=== PATIENT | female | born 1955 | race Caucasian/White ===

== ENCOUNTER 2020-06-18 08:18 | Emergency (ER) | payer MEDICARE, SELFPAY ==
--- NOTE | ~2020-06-18 | XR_ITS ---
EXAMINATION: XR chest 2V EXAM DATE: 06/18/2020 08:58 INDICATION: Mid chest pain and high blood pressure. TECHNIQUE: Frontal and lateral projections of the chest obtained and reviewed. Comparison is made to prior examination from 12/22/2018. FINDINGS: There are cholecystectomy clips. The lungs are clear. There are no pleural effusions. Th e cardiomediastinal silhouette is within normal limits. There is no pneumothorax suspected. The bon es and soft tissues are unremarkable. There is no significant interval change. IMPRESSION: No acute cardiopulmonary findings. Reviewed, dictated and finalized at location A.
[2020-06-18 08:21] VITALS: BP 157/88; PULSE 76; RESP 21; TEMP 36.6; O2SAT 98
--- NOTE | 2020-06-18 08:30 | ECG_ITS ---
Measurements Intervals Lindsay Rate: 73 P: 0 ND: 165 QRS: -2 QRSD: 83 T: 35 QT: 355 QTc: 392 Interpretive Statements SINUS RHYTHM DELAYED PRECORDIAL R/S TRANSITION BORDERLINE ECG Electronically Signed On 06-18-2020 11:24:39 CDT by Pradeep Calderón D.O.
--- NOTE | 2020-06-18 08:31 | ED.CHESTPAIN ---
HPI - Chest Pain General Chief Complaint: Recheck/Abnormal Lab/Rx Stated Complaint: High Blood Pressure Time Seen by Provider: 06/18/20 08:21 History of Present Illness HPI narrative: She reports intermittent blood pressure elevation and chest pressure for the past few days. No pain. There does not seem to be anything in particular that brings the pressure on. It is not exertional. She has noted that when she experiences this her BP tends to be higher than usual. No SOB. Mild stomach upset. She had similar symptoms in the past diagnosed as anxiety. Related Data Home Medications Medication Instructions Recorded Confirmed alprazolam 0.25 mg tablet 0.25 mg PO TID PRN 12/03/19 04/12/20 doxycycline monohydrate 40 mg 40 mg PO DAILY 12/03/19 04/12/20 capsule,immediate - delay release gabapentin 100 mg capsule 300 mg PO QID cap 12/03/19 04/12/20 mzxntuob-mprpbbg-ehnc-lutein mcg PO DAILY tablet 03/31/20 04/12/20 omega-3 fatty acids 1,000 mg 1,000 mg PO DAILY 03/31/20 04/12/20 capsule Allergies Allergy/AdvReac Type Severity Reaction Status Date / Time amoxicillin Allergy Unknown Vomiting Verified 06/18/20 09:30 clavulanic acid AdvReac Severe Nausea and Verified 06/18/20 09:30 [From Augmentin] Vomiting Review of Systems Review of Systems: All systems reviewed & are unremarkable except as noted in HPI and below Constitutional: Constitutional: Denies chills, Denies fever(s) and Denies weakness Cardiovascular: Cardiovascular: Denies rapid heart rate Respiratory: Respiratory: Denies cough and Denies dyspnea Gastrointestinal: Gastrointestinal: Denies abdominal pain, Reports nausea and Denies vomiting Musculoskeletal: Musculoskeletal: Denies back pain Neurologic: Denies numbness and Denies weakness [facility] Past Medical History Medical History Hypertension Hypothyroidism Polymyopathy Surgical History Surgical History History of appendectomy History of cholecystectomy History of tonsillectomy Family History Family History Mother Depression Sibling Hypertension Father Family history of arthritis Social History Social History Smoking status: Never smoker Second hand tobacco smoke exposure: No Alcohol intake: never Substance use: never Substance use type: does not use Gender identity (if verbalized by the patient): Female Exam Const: General: healthy appearing, no acute distress and alert Orientation/consciousness: patient oriented x3 HENMT: Head: normal to inspection Neck: Neck: normal visual inspection and no lymphadenopathy Chest: Chest palpation & inspection: no tenderness Resp: Effort & Inspection: normal respiratory effort Auscultation: clear to auscultation bilaterally, no rales, no rhonchi and no wheezes Cardio: Jugular venous distension: no JVD Rate: regular rate Rhythm: regular rhythm Heart sounds: no murmurs GI: Inspection: non-distended GI Palp: Yes Soft to palpation and No Tenderness to palpation present (GI) Skin: General skin exam: normal color Neuro: General: patient oriented x3 and moves all extremities Speech: normal speech Extrem: General: no edema Psych: Appearance: well kempt Affect: normal affect Course Vital Signs Vital signs: Vital Signs Temperature 36.6 C 06/18/20 08:21 Pulse Rate 76 06/18/20 08:21 Respiratory Rate 21 H 06/18/20 08:21 Blood Pressure 157/88 H 06/18/20 08:21 Pulse Oximetry 98 06/18/20 08:21 Temperature 36.6 C 06/18/20 08:21 Pulse Rate 77 06/18/20 10:10 Respiratory Rate 23 H 06/18/20 10:10 Blood Pressure 149/78 H 06/18/20 10:10 Pulse Oximetry 96 06/18/20 10:10 MDM - Chest Pain MDM Narrative Medical decision making narrative: Symptoms are atypical. Most likely
[2020-06-18 08:40] LABS: Basophils Absolute Auto 0.1 K/mm3 (0.0-0.1); Eosinophils Absolute Auto 0.2 K/mm3 (0-0.3); Eosinophils Percent Auto 2.8 % (0-4.4); Hematocrit 44.3 % (37.0-47.0); Immature Granulocyte Absolute 0.06 K/mm3 (0.00-0.031); Immature Granulocyte Percent A 0.7 % (0-0.5); Lymphocytes Absolute Auto 2.31 K/mm3 (0.9-3.2); Lymphocytes Percent Auto 27.8 % (18.3-44.2); Mean Corpuscular HGB Conc 33.9 g/dl (32-36); Mean Corpuscular Hemoglobin 30.3 pg (26-34); Mean Corpuscular Volume 89.5 fl (80-100); Mean Platelet Volume 10.4 fl (7.4-10.4); Monocytes Absolute Auto 0.6 K/mm3 (0.1-0.6); Monocytes Percent Auto 7.1 % (2.6-8.5); Neutrophils Percent Auto 60.6 % (45.5-73.1); Platelet Count Result 296 k/mm3 (150-375); Red Blood Count 4.95 M/mm3 (4.2-5.4); Red Cell Distribution Width 14.1 % (11.5-14.5); White Blood Count 8.3 K/mm3 (4.5-10.0)
[2020-06-18 08:52] LABS: Blood Urea Nitrogen 18 mg/dL (7-17); Calcium 9.4 mg/dL (8.4-10.2); Carbon Dioxide 24 mmol/L (22-30); Chloride 106 mmol/L (98-107); Estimated Glomerular Filt Rate > 60; Glucose 122 mg/dL (65-105); Sodium 138 mmol/L (137-145)
[2020-06-18 08:53] LABS: Prothrombin Time 12.7 Seconds (11.1-14.7)
[2020-06-18 08:54] LABS: Partial Thromboplastin Time 23.8 SECONDS (22.3-36.8)
[2020-06-18 09:04] LABS: Troponin I < 0.012 ng/mL (0.000-0.034)
[2020-06-18 09:33] VITALS: BP 132/87; PULSE 68; RESP 14; O2SAT 97
[2020-06-18 10:10] VITALS: BP 149/78; PULSE 77; RESP 23; O2SAT 96
== END 2020-06-18 10:10 | disposition home or self-care (01) ==
PROVIDERS: Emergency Provider Emergency Medicine; PCP Family Medicine
DX: R07.89 Other chest pain (principal); F41.9 Anxiety disorder, unspecified; I10 Essential (primary) hypertension; E03.9 Hypothyroidism, unspecified; R94.31 Abnormal electrocardiogram [ECG] [EKG]
CPT/HCPCS: 36415; 71046; 80048; 84484; 85025; 85610; 85730; 93005; 99284

== ENCOUNTER 2020-07-14 08:45 | Outpatient (CLI) | payer MEDICARE, SELFPAY ==
--- NOTE | ~2020-07-14 | DEXA_ITS ---
Bone Density Report Name: Keysha Rodrigez Age: 65 Sex: Female Ethnicity: White Date of : 1955 Indication: postmenopausal; height loss; Referring Provider: Philipp Mckeon Study: Bone densitometry was performed. Exam Date: July 14, 2020 Accession number: [id number] Bone Density: Region BMD T-score Z-score Classification AP Spine (L1-L4) 0.871 -1.6 0.2 Osteopenia Femoral Neck (Left) 0.610 -2.2 -0.6 Osteopenia Total Hip (Left) 0.800 -1.2 0.1 Osteopenia Total Hip Bilateral Avg 0.816 -1.0 0.2 Osteopenia Femoral Neck (Right) 0.587 -2.4 -0.8 Osteopenia Total Hip (Right) 0.831 -0.9 0.3 Normal World Health Organization criteria for BMD impression classify patients as: Normal (T-score at or above -1.0), Osteopenia (T-score between -1.0 and -2.5), or Osteoporosis (T-score at or below -2.5). 10-year Fracture Risk(1): Major Osteoporotic Fracture 12% Hip Fracture 2.1% Reported Risk Factors: [place] (), Neck BMD=0.587, BMI=32.3 (1) FRAX(R) Version 3.08. Fracture probability calculated for an untreated patient. Fracture probability may be lower if the patient has received treatment. Clinical Information Provided by Patient: Patient maximum height was 67.5 Menopause Age: 48 Onset of menses at age 11 Number of children 3 Impression: The patient has low bone mass, based on the Right Femoral Neck T-score. The patient has an estimated ten-year risk of hip fracture of 2.1% and an estimated ten-year risk of major fracture of 12%, based on the WHO FRAX algorithm. Discussion: BONE DENSITY IS LOW AT ONE OR MORE SKELETAL SITES. This patient's lowest T-score is low at one or more skeletal sites. It meets the World Health Organization's (WHO) criteria for ?low bone mass? (T-score between -1.0 and -2.5). The patient's 10-year risk of fracture as calculated by FRAX is less than the threshold where pharmacological therapy is recommended by the National Osteoporosis Foundation (NOF). However, all treatment decisions require clinical judgment and consideration of individual patient factors, including patient preferences, comorbidities, previous drug use, risk factors not captured in the FRAX model (e.g., frailty, falls, vitamin D deficiency, increased bone turnover, interval significant decline in bone density) and possible under or overestimation of fracture risk by FRAX. The patient should follow a healthful lifestyle (good nutrition with adequate calcium and vitamin D, and appropriate weight-bearing exercise). Follow-Up: Consider repeating this study in 2 to 3 years to reassess this patient's status, or sooner if there is some new clinical indication. Reported by: [facility] on 07/14/2020 9:16:00 AM. Reviewed, dictated and finalized at location AVenancio SARAH
== END 2020-07-14 08:46 | disposition home or self-care (01) ==
LOC: ANHIMG 08:47
PROVIDERS: PCP Family Medicine; Visit Provider Family Medicine
DX: Z78.0 Asymptomatic menopausal state (principal); M85.89 Other specified disorders of bone density and structure, multiple sites
CPT/HCPCS: 77080

== ENCOUNTER → 2021-06-30 16:37 | Outpatient (CLI) | payer MEDICARE, SELFPAY ==
--- NOTE | ~2021-06-30 | MM_ITS ---
EXAMINATION: MM screening [facility] BI w hira HISTORY: Screening mammogram TECHNIQUE: Craniocaudal and mediolateral oblique 3-D tomosynthesis images were obtained and synthetic 2-D images were generated. CAD analysis was submitted and interpreted. COMPARISON: 07/21/2019, 07/10/2019 BREAST PARENCHYMAL COMPOSITION: There are scattered areas of fibroglandular density. FINDINGS: There is no evidence of suspicious mass, calcification, or architectural distortion to sugg est malignancy in either breast. There has been no suspicious interval change. IMPRESSION: 1. No mammographic evidence of malignancy. 2. Recommend routine screening mammography in one year. BI-RADS Category 1: Negative Reviewed, dictated and finalized at location A.
== END ==
PROVIDERS: PCP Family Medicine; Visit Provider Family Medicine
DX: Z12.31 Encounter for screening mammogram for malignant neoplasm of breast (principal)
CPT/HCPCS: 77063; 77067

== ENCOUNTER → 2022-07-13 01:48 | Outpatient (CLI) | payer MEDICARE, SELFPAY ==
[2022-07-13 11:38] LABS: SARS-CoV-2 RNA PCR Negative
== END ==
PROVIDERS: PCP Family Medicine; Visit Provider Family Medicine
DX: R68.89 Other general symptoms and signs (principal); Z20.822 Contact with and (suspected) exposure to COVID-19
CPT/HCPCS: C9803; U0003; U0005

== ENCOUNTER → 2022-09-03 13:28 | Outpatient (CLI) | payer MEDICARE, SELFPAY ==
--- NOTE | ~2022-09-03 | MM_ITS ---
EXAMINATION: MM screening [facility] BI w hira HISTORY: Screening TECHNIQUE: Craniocaudal and mediolateral oblique 3-D tomosynthesis images were obtained and synthetic 2-D images were generated. CAD analysis was submitted and interpreted. COMPARISON: No prior mammogram is available for comparison at this institution. BREAST PARENCHYMAL COMPOSITION: There are scattered areas of fibroglandular density. FINDINGS: There is no evidence of suspicious mass, calcification, or architectural distortion to sugg est malignancy in either breast. There has been no suspicious interval change. IMPRESSION: 1. No mammographic evidence of malignancy. 2. Recommend routine screening mammography in one year. BI-RADS Category 1: Negative Reviewed, dictated and finalized at location A.
== END ==
PROVIDERS: PCP Family Medicine; Visit Provider Family Medicine
DX: Z12.31 Encounter for screening mammogram for malignant neoplasm of breast (principal)
CPT/HCPCS: 77063; 77067

== ENCOUNTER → 2024-01-20 10:20 | Outpatient (CLI) | payer MEDICARE, SELFPAY ==
--- NOTE | ~2024-01-20 | MM_ITS ---
EXAMINATION: MM screening [facility] BI w hira HISTORY: Screening mammogram TECHNIQUE: Craniocaudal and mediolateral oblique 3-D tomosynthesis images were obtained and synthetic 2-D images were generated. CAD analysis was submitted and interpreted. COMPARISON: 09/03/2022, 06/30/2021 bilateral screening mammogram examinations BREAST PARENCHYMAL COMPOSITION: There are scattered areas of fibroglandular density. FINDINGS: There is no evidence of suspicious mass, calcification, or architectural distortion to sugg est malignancy in either breast. There has been no suspicious interval change. IMPRESSION: 1. No mammographic evidence of malignancy. 2. Recommend routine screening mammography in one year. BI-RADS Category 1: Negative Reviewed, dictated and finalized at location A. 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
== END ==
PROVIDERS: PCP Family Medicine; Visit Provider Family Medicine
DX: Z12.31 Encounter for screening mammogram for malignant neoplasm of breast (principal)
CPT/HCPCS: 77063; 77067

== ENCOUNTER 2025-01-22 08:47 | Outpatient (CLI) | payer MEDICARE, SELFPAY ==
--- NOTE | ~2025-01-22 | DEXA_ITS ---
Bone Density Report Name: KELL PEERZ Age: 70 Sex: Female Ethnicity: White Date of : 1955 Indication: osteopenia; height loss; Referring Provider: CRISTI THOMAS Study: Bone densitometry was performed. Exam Date: January 22, 2025 Accession number: [id number] Bone Density: Region BMD T-score Z-score Classification AP Spine(L1-L4) 0.820 -2.1 0.0 Osteopenia Femoral Neck (Left) 0.601 -2.2 -0.4 Osteopenia Total Hip (Left) 0.769 -1.4 0.1 Osteopenia Femoral Neck (Right) 0.581 -2.4 -0.6 Osteopenia Total Hip (Right) 0.778 -1.3 0.2 Osteopenia Total Hip Mean 0.774 -1.4 0.2 Osteopenia World Health Organization criteria for BMD impression classify patients as: Normal (T-score at or above -1.0), Osteopenia (T-score between -1.0 and -2.5), or Osteoporosis (T-score at or below -2.5). 10-year Fracture Risk(1): Major Osteoporotic Fracture 14% Hip Fracture 3.2% Reported Risk Factors: [place] (), Neck BMD=0.581, BMI=26.1 (1) FRAX(R) Version 3.08. Fracture probability calculated for an untreated patient. Fracture probability may be lower if the patient has received treatment. Previous Exams: Region Exam Age BMD T-score BMD Change BMD Change Date g/cm2 vs Baseline vs Previous AP Spine (L1-L4) 01/22/2025 70 0.820 -2.1 -0.051 (-5.9%) -0.051 (-5.9%) 07/14/2020 65 0.871 -1.6 Total Hip(Left) 01/22/2025 70 0.769 -1.4 -0.031 (-3.9%) -0.031 (-3.9%) 07/14/2020 65 0.800 -1.2 Total Hip(Right) 01/22/2025 70 0.778 -1.3 -0.053 (-6.3%) -0.053 (-6.3%) 07/14/2020 65 0.831 -0.9 *Denotes significance at 95% confidence level, LSC for AP Spine = 0.022 g/cm2, LSC for Total Hip = 0.027 g/cm2 # Denotes dissimilar scan types or analysis methods Clinical Information Provided by Patient: Has used the following medications: Vitamin D, Calcium Patient maximum height was 67.5 Menopause Age: 48 No regular weight bearing exercise Drinks caffeinated beverages Onset of menses at age 11 Number of children 3 Impression: The patient has low bone mass, based on the Right Femoral Neck T-score. The patient has an estimated ten-year risk of hip fracture of 3.2% and an estimated ten-year risk of major fracture of 14%, based on the WHO FRAX algorithm. No significant bone loss was observed. Discussion: BONE DENSITY IS LOW AT ONE OR MORE SKELETAL SITES. THE PATIENT'S BMD AND CLINICAL RISK FACTORS CONTRIBUTE TO THIS PATIENT'S INCREASED RISK OF FRACTURE. This patient's lowest T-score is low at one or more skeletal sites. It meets the World Health Organization's (WHO) criteria for ?low bone mass? (T-score between -1.0 and -2.5). The patient's 10-year risk of hip fracture as calculated by FRAX exceeds the threshold where pharmacological therapy is recommended by the National Osteoporosis Foundation (NOF). However, all treatment decisions require clinical judgment and consideration of individual patient factors, including patient preferences, comorbidities, previous drug use, risk factors not captured in the FRAX model (e.g., frailty, falls, vitamin D deficiency, increased bone turnover, interval significant decline in bone density) and possible under or overestimation of fracture risk by FRAX. The patient should follow a healthful lifestyle (good nutrition with adequate calcium and vitamin D, and appropriate weight-bearing exercise). Follow-Up: Consider a repeat BMD and Vertebral Fracture Assessment (VFA) exam in 2 years or sooner if medically necessary, to reassess this patient's status. Reported by: LORRIE on 01/22/2025 9:43:00 AM. Reviewed, dictated and finalized at location AVenancio SARAH
== END 2025-01-22 08:48 | disposition home or self-care (01) ==
LOC: ANHIMG 08:51
PROVIDERS: PCP Family Medicine; Visit Provider Family Medicine
DX: M85.89 Other specified disorders of bone density and structure, multiple sites (principal); Z78.0 Asymptomatic menopausal state
CPT/HCPCS: 77080

== ENCOUNTER 2025-02-22 11:37 | Outpatient (CLI) | payer MEDICARE, SELFPAY ==
--- NOTE | ~2025-02-22 | XR_ITS ---
Left Knee Technique: AP and lateral views were obtained. Clinical History: Pain Findings: No fracture or dislocation is seen. Osseous alignment is anatomic. Joint spaces are preserv ed, with mild degenerative change of the patellofemoral compartment. Soft tissues are unremarkable. N o joint effusion is seen. Impression: Mild patellofemoral compartment degenerative change. Reviewed, dictated and finalized at location . Impression: Mild patellofemoral compartment degenerative change.
== END 2025-02-22 11:38 | disposition home or self-care (01) ==
LOC: MICIMG 11:42
PROVIDERS: PCP Family Medicine; Visit Provider Student in an Organized Health Care Education/Training Program
DX: M17.12 Unilateral primary osteoarthritis, left knee (principal); Z12.39 Encounter for other screening for malignant neoplasm of breast
CPT/HCPCS: 73560

== ENCOUNTER 2025-08-13 13:32 | Outpatient (CLI) | payer MEDICARE, SELFPAY ==
--- NOTE | ~2025-08-13 | MM_ITS ---
EXAMINATION: MM screening [facility] BI w hira HISTORY: Screening TECHNIQUE: Craniocaudal and mediolateral oblique 3-D tomosynthesis images were obtained and synthetic 2-D images were generated. CAD analysis was submitted and interpreted. COMPARISON: Comparison to multiple prior studies sequentially, with oldest reviewed study dated 07/10/2019. BREAST PARENCHYMAL COMPOSITION: Not dense: There are scattered areas of fibroglandular density. FINDINGS: There is no evidence of suspicious mass, calcification, or architectural distortion to suggest malignancy in either breast. There has been no suspicious interval change. IMPRESSION: 1. No mammographic evidence of malignancy. 2. Recommend routine screening mammography in one year. BI-RADS Category 1: Negative Reviewed, dictated and finalized at location B.
== END 2025-08-13 13:33 | disposition home or self-care (01) ==
LOC: MICIMG 13:33
PROVIDERS: PCP Family Medicine; Visit Provider Student in an Organized Health Care Education/Training Program
DX: Z12.31 Encounter for screening mammogram for malignant neoplasm of breast (principal); M25.562 Pain in left knee
CPT/HCPCS: 77063; 77067

== ENCOUNTER 2025-09-08 14:51 | Emergency (ER) | payer MEDICARE, SELFPAY ==
[2025-09-08 14:58] VITALS: BP 137/80; PULSE 64; RESP 16; TEMP 36.1; O2SAT 99
--- NOTE | 2025-09-08 15:05 | ED.GENADULT ---
HPI - General Adult General Chief complaint: Upper Respiratory Infection Stated complaint: sinus Source: patient Mode of arrival: ambulatory Limitations: no limitations History of Present Illness HPI narrative: patient is a 70 y/o female presenting with c/o sinus congestion. Additional sx reported include rhinorrhea, voice hoarseness, cough, postnasal drip. Sx began 5 days ago. 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 NO known exposure to COVID, FLU,STREP,PNA. No constitutional sx or double worsening. States she gets the same thing every August and September as well as every January and February. No additional complaints. Related Data Home Medications ?Medication ?Instructions ?Recorded ?Confirmed ?Last Taken ?Type doxycycline monohydrate 40 mg 40 mg PO DAILY 12/03/19 04/14/25 Unknown History capsule,immediate - delay release (Oracea) sxquprzz-doedvhd-oqan-lutein tablet mcg PO DAILY 03/31/20 04/14/25 Unknown History omega-3 fatty acids 1,000 mg 1,000 mg PO DAILY 03/31/20 04/14/25 Unknown History capsule (Fish Oil Concentrate) calcium carbonate (Calcium 500) 500 mg PO DAILY 12/26/20 04/14/25 Unknown History fexofenadine 60 mg tablet 60 mg PO Q12H 12/26/20 04/14/25 Unknown History lutein 6 mg capsule 6 mg PO DAILY 06/14/21 04/14/25 Unknown History pregabalin 25 mg capsule 50 mg PO BID 08/19/24 04/14/25 Unknown History doxycycline hyclate 20 mg tablet mg 09/08/25 Unknown History Allergies Allergy/AdvReac Type Severity Reaction Status Date / Time amoxicillin AdvReac Intermediate Nausea and Verified 09/08/25 14:53 Vomiting clavulanic acid (From AdvReac Intermediate Nausea and Verified 09/08/25 14:53 Augmentin) Vomiting Review of Systems Review of Systems: CONSTITUTIONAL: Denies body aches, fever, chills, or sweats. EYES: Denies visual changes, redness, or discharge. ENT: reports rhinorrhea, congestion, postnasal drip, voice hoarseness, denies sore throat, or otalgia. CARDIOVASCULAR: Denies chest pain, palpitations, or edema. RESPIRATORY: reports cough denies dyspnea. GASTROINTESTINAL: Denies abdominal pain, nausea, vomiting, or diarrhea. GENITOURINARY: Denies dysuria or hematuria. SKIN: Denies rash, itching, or wounds. MUSCULOSKELETAL: Denies back pain, joint pain, or myalgia. NEUROLOGIC: Denies headache, numbness, tingling, or weakness. PSYCH: Denies depression or anxiety. 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 Hyperlipidemia Chronic anxiety Pre-diabetes Hypothyroidism (acquired) Primary hypertension Polymyopathy Hypertension Hypothyroidism Surgical History Surgical History History of cholecystectomy History of appendectomy History of tonsillectomy Family History Family History Mother Depression Sibling Hypertension Father Family history of arthritis Social History Social History Smoking status: Never smoker Second hand tobacco smoke exposure: No Alcohol intake: never Substance use: never Substance use type: does not use Lack of Transportation: No Lack of Food: Never True Current Housing: I Do Not Have Housing Concerned About Future Housing: No Difficulty Paying Gas/Electric Bills: No Difficulty Paying for Meds: No Currently Unemployed: No Education: Master's Degree or Higher Difficulty w/ Childcare or Family Care: No Living arrangements: with family Occupation/Education: retired Gender identity (if verbalized by the patient): Female Spiritual care concerns: No Agree to blood products: Yes Exam Narrative: GENERAL: Well-appearing, well-nourished, and in no acute distress. HEAD: Normocephalic, atraumatic. EYES: EOMI. No redness or drainage. Conjunctivae normal. ENT: Mucous membranes pink and moist. Nares clear. No rhinorrhea. TMs normal bilaterally. Throat normal, tonsils are surgically absent. Uvula midline. there is moderate amount of clear, postnasal drainage. Sinuses are nontender to palpation. Nasal mucosa is dry, cracked, edematous. NECK: Normal AROM. Supple. No lymphadenopathy. CHEST: No respiratory distress. Clear to auscultation. HEART: Regular rate and rhythm. No murmur appreciated. Normal peripheral pulses. EXTREMITIES: Normal range of motion SKIN: Warm, dry, no rash. Capillary refill normal. Normal skin turgor. NEURO: No focal deficits. Alert and oriented x3. Gait steady. PSYCH: Normal affect. No signs of depression or anxiety. Course Course Level of Care: Express Care Visit Vital Signs Vital signs: Vital Signs Temperature 97.0 F L 09/08/25 14:58 Pulse Rate 64 09/08/25 14:58 Respiratory Rate 16 09/08/25 14:58 Blood Pressure 137/80 09/08/25 14:58 Pulse Oximetry 99 09/08/25 14:58 Oxygen Delivery Room Air 09/08/25 14:58 Temperature 97.0 F L 09/08/25 14:58 Pulse Rate 64 09/08/25 14:58 Respiratory Rate 16 09/08/25 14:58 Blood Pressure 137/80 09/08/25 14:58 Pulse Oximetry 99 09/08/25 14:58 Oxygen Delivery Room Air 09/08/25 14:58 Medical Decision Making MDM Narrative Medical decision making narrative: Discussed elevated blood pressure readings with patient and advised daily BP monitoring and f/u with PCP if persisting. Vital Signs Vital Signs: Vital Signs Temperature 97.0 F L 09/08/25 14:58 Pulse Rate 64 09/08/25 14:58 Respiratory Rate 16 09/08/25 14:58 Blood Pressure 137/80 09/08/25 14:58 Pulse Oximetry 99 09/08/25 14:58 Oxygen Delivery Room Air 09/08/25 14:58 Temperature 97.0 F L 09/08/25 14:58 Pulse Rate 64 09/08/25 14:58 Respiratory Rate 16 09/08/25 14:58 Blood Pressure 137/80 09/08/25 14:58 Pulse Oximetry 99 09/08/25 14:58 Oxygen Delivery Room Air 09/08/25 14:58 Discharge Plan Discharge Clinical Impression: Primary hypertension Sinusitis Qualifiers: Sinusitis location: other Chronicity: acute Recurrence: not specified as recurrent Qualified Code(s): J01.80 - Other acute sinusitis Patient Disposition: Home Condition: Stable Instructions: Antibiotic Form, Sinusitis (ED) Additional Instructions: Purchase and begin using Coricidin HBP per the package instructions along with Your daily nasal spray and Krauna. Go straight to ER should your symptoms become worse or should any new symptoms develop Patient Language: Japanese Prescriptions: No Action doxycycline hyclate 20 mg tablet doxycycline monohydrate [Oracea] 40 mg capsule,IR - delay rel,biphase 40 mg PO DAILY fexofenadine 60 mg tablet 60 mg PO Q12H calcium carbonate [Calcium 500] 500 mg calcium (1,250 mg) tablet 500 mg PO DAILY lutein 6 mg capsule 6 mg PO DAILY Rx Instructions: give with meal/snack pregabalin 25 mg capsule 50 mg PO BID ccffzkyv-sjpqahp-iiui-lutein Tablet PO DAILY omega-3 fatty acids [Fish Oil Concentrate] 1,000 mg capsule 1,000 mg PO DAILY metoprolol succinate 50 mg tablet extended release 24 hr See Rx Instructions .ROUTE .COMPLEX Qty: 90 1RF Dose Instruction: TAKE 1 TABLET BY MOUTH EVERY DAY Rx Instructions: TAKE 1 TABLET BY MOUTH EVERY DAY hydrochlorothiazide 25 mg tablet See Rx Instructions .ROUTE .COMPLEX Qty: 45 1RF Dose Instruction: TAKE 1/2 TABLET (12.5 MG) BY MOUTH EVERY DAY Rx Instructions: TAKE 1/2 TABLET (12.5 MG) BY MOUTH EVERY DAY levothyroxine 25 mcg tablet 25 mcg PO DAILY Qty: 90 1RF alendronate 70 mg tablet 70 mg PO WEEKLY Qty: 12 1RF Follow-up/Referrals: Umesh Sherman MD [Primary Care Provider, Family Practice] - 09/09/25 Time of Disposition: 15:28
== END 2025-09-08 15:30 | disposition home or self-care (01) ==
PROVIDERS: Emergency Provider Registered Nurse; PCP Family Medicine Adolescent Medicine
DX: I10 Essential (primary) hypertension (principal); J01.80 Other acute sinusitis; E03.9 Hypothyroidism, unspecified; E78.5 Hyperlipidemia, unspecified; M81.0 Age-related osteoporosis without current pathological fracture; Z86.16 Personal history of COVID-19; R73.03 Prediabetes
CPT/HCPCS: 99211; G0463